=== PATIENT | male | born 1990 | race Caucasian/White ===

== ENCOUNTER 2020-09-03 08:55 | Emergency (ER) | payer BC ==
[~2020-09-03] VITALS: Ht 175.3 cm; Wt 81.6 kg
[2020-09-03] MEDS ORDERED: FLUORESCEIN SOD 1 MG TEST STRIP OP ONE (10:00)
[2020-09-03] MEDS ORDERED: TETRACAINE HCL 0.5% OPTH(EYE) SOLN 4ML EACHEYE ONE (10:00)
[2020-09-03 10:38] VITALS: BP 154/70
== END 2020-09-03 10:49 | disposition home or self-care (01) ==
LOC: ER 08:55
DX: S05.01XD Injury of conjunctiva and corneal abrasion without foreign body, right eye, subsequent encounter (principal); X58.XXXD Exposure to other specified factors, subsequent encounter